=== PATIENT | female | born 1980 | race Caucasian/White ===

== ENCOUNTER 2019-05-11 00:55 | Inpatient (IN) | payer SELFPAY ==
[~2019-05-11] VITALS: Ht 175.3 cm; Wt 96.7 kg
[2019-05-11] VITALS (15 sets, daily range): BP systolic 103–123; BP diastolic 53–72
[~2019-05-11 00:55] MED LIST: RT-ALBUTEROL SULF 2.5 MG/3 ML PRE-MIX VIAL ONE; RT-IPRATROPIUM (ATROVENT) 0.5MG/2.5ML AMP IH ONE
[2019-05-11] MEDS ORDERED: methylPREDNISolone 125 MG (Solu-MEDROL) VIAL ONE (01:00)
--- OUTSIDE RECORDS SUMMARY | 2019-05-11 01:02 | XMS REPORT ---
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 Medications Not available. Problem List Not available. Vital Signs Date Time BP-Sys(mm[Hg] BP-Dominga(mm[Hg]) HR(bpm) RR(rpm) Temp WT HT HC BMI BSA BMI Percentile O2 Sat(%) 03/16/2016 11:09:00 AM 118 mmHg 75 mmHg 88 bpm 16 rpm 97.5 F 201 lbs 98 % Social History Name Description Comments Tobacco Current every day smoker Alcohol Current some day History of Procedures Date Ordered Description Order Status 03/18/2016 12:00 AM Employment Physical Reviewed Results Summary Not available. History Of Immunizations Not available. History of Past Illness Name Date of Onset Comments No significant medical history Pre-employment exam, encounter for Mar 16 2016 11:12AM Payers Insurance Name Company Name Plan Name Plan Number Policy Number Policy Group Number Start Date [facility] Med Occupational Medicine [id number] March History of Encounters Visit Date Visit Type Provider 03/16/2016 Office visit Gera Mar APRN
--- OUTSIDE RECORDS SUMMARY | 2019-05-11 01:02 | XMS REPORT ---
Author Author [facility] Medical [facility] Organization [facility] Address [address], [place] [address] Phone [phone] Summary purpose TRANSITION OF CARE AUTO GENERATION Chief Complaint and Reason for Visit No authorized Reason for Visit (Admitting Diagnosis) is available for this visit . Problem list No authorized problems tracked for continuity of care are available for this vis it. Encounters No authorized problems tracked for encounter diagnoses are available for this vi sit. Medications No medications recorded for this patient visit Allergies, adverse reactions, alerts Allergen Category Ingredient Status Reaction Severity Onset No Known Drug Allergy No known drug allergies No known drug allergies Confirmed or Verified Immunizations No immunizations recorded for this patient visit Relevant diagnostic tests and/or laboratory data No authorized results are available for this patient visit History of procedures No procedures recorded for this patient visit. Functional status No functional or cognitive status observations are available for this visit. Vital signs No authorized vital signs are available for this visit. Social history No Social History or smoking status observations were recorded for this visit. ( Unknown if ever smoked.) Treatment Plan No treatment plan text is available for this visit. Hospital discharge instructions No discharge instruction text is available for this visit.
--- OUTSIDE RECORDS SUMMARY | 2019-05-11 01:02 | XMS REPORT ---
Author Author [id number] Medical Staff Organization [facility] Address [address] [id number] Phone [phone] Summary purpose TRANSITION OF CARE AUTO GENERATION [...] for this patient visit History of procedures Procedure Code Code Type Description Date Performed Performing Physician [id number] CPT-4 EMERGENCY DEPT VISIT 03-23-2016 JULITO FRANKLIN 02630 CPT-4 EMERGENCY DEPT VISIT 03-23-2016 JULITO FRANKLIN Functional status Functional Status Finding Observation Time Abdomen Appearance round 33-31-379772:30 Abdomen rigid 79-11-497392:30 Cristobal no 50-17-701915:30 Urination normal 47-09-621069:30 Quality sym/unlabored 91-39-068809:30 Cough absent 04-41-776090:30 Secretions no 02-43-916367:30 Breath Sounds RUL clear 16-92-015999:30 Breath Sounds RML clear 96-05-055631:30 Breath Sounds RLL clear :30 Breath Sounds PAYTON clear :30 Breath Sounds LLL clear 38-85-087210:30 Airway natural 46-74-315357:30 Chest Tube no :30 Oxygen no 22-78-175763:55 Temp >100.4 no :30 Temp <96.8 no 93-57-274808:30 Chills with rigors no :30 HR > 90bpm no :30 Respirations > 20 no :30 Systolic <90 no :30 headache stiff neck no :30 Nursing Note Vs obtained. Pt stable to ambulate off [address] with x3 scripts in hand and her friend to drive pt home. :55 Vital signs Type Value Date Respiration Rate 18breaths per minute :55 Pulse 68beats per minute :55 Oxygen Saturation 96% :55 BP Systolic 125mmHg :55 BP Diastolic 56mmHg :55 Temperature 98.6F :55 Social history Type Value Smoking Status CURRENT EVERY DAY SMOKER Treatment Plan No treatment plan text is available for this visit. Hospital discharge instructions Dismissal Condition good Disposition on DC home DC Inst/Educ Give yes Med/Side Effects Rev yes PNE Vac none Flu Vac none
--- OUTSIDE RECORDS SUMMARY | 2019-05-11 01:02 | XMS REPORT | CCD ---
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 Allergies Allergy Code Allergy Type Reaction Status NO KNOWN DRUG ALLERGIES - NKDA 0 Drug allergy Active Procedures Procedure Code Procedure Type Date ^CBC W/AUTO DIFF 4612546 SNOMED CT 11/01/[address] 11/01/2015 CBC W/ AUTO DIFF (RFLX MAN DIFF IF IND) 5092272 SNOMED CT 11/01/2015 COMPREHENSIVE METABOLIC PANEL 277981522 SNOMED [address] 11/01/[address] 11/01/[address] 11/01/[address] 11/01/2015 RAPID DRUG SCREEN 801195460 SNOMED [address] 11/01/[address] 11/01/2015 History of Immunizations Unknown or Not Available. Problems Unknown or Not Available. Results COMPREHENSIVE METABOLIC PANEL - Collect Date/Time: 11/01/2015 17:20 Test Name Code Test Result Test Units Test Ref Range GLUCOSE 2345-7 84 MG/DL L=70 H=100 SODIUM 2951-2 138 MEQ/L L=135 H=148 POTASSIUM 2823-3 3.8 MEQ/L L=3.5 H=5.3 CHLORIDE 2075-0 104 MEQ/L L=96 H=110 CO2 2028-9 23 MEQ/L L=22 H=29 BUN 3094-0 8 MG/DL L=8 H=22 CREATININE 2160-0 0.8 MG/DL L=0.6 H=1.6 SGOT/AST 1920-8 35 IU/L L=10 H=40 SGPT/ALT 1742-6 38 IU/L L=8 H=54 ALK PHOS 6768-6 114 IU/L L=35 H=115 TOTAL PROTEIN 2885-2 7.9 G/DL L=5.5 H=8.5 ALBUMIN 1751-7 4.8 G/DL L=3.1 H=5.4 TOTAL BILI 1975-2 0.3 MG/DL L=0.0 H=1.5 CALCIUM 20968-5 8.9 MG/DL L=8.2 H=10.6 AGE 34 yrs GFR NonAA 83 GFR AA 101 eGFR >60 N/A eGFR AA* >60 N/A CPK - Collect Date/Time: 11/01/2015 17:20 Test Name Code Test Result Test Units Test Ref Range CPK 2157-6 200 IU/L L=0 H=235 ACETAMINOPHEN - Collect Date/Time: 11/01/2015 17:20 Test Name Code Test Result Test Units Test Ref Range ACETAMINOPHEN 3298-7 <0.60 UG/ML ALCOHOL - Collect Date/Time: 11/01/2015 17:20 Test Name Code Test Result Test Units Test Ref Range ETHANOL 5640-8 281 MG/DL RAPID DRUG SCREEN - Collect Date/Time: 11/01/2015 18:30 Test Name Code Test Result Test Units Test Ref Range Cannabinoids (THC) NEGATIVE N/A NEG: < 50 ng/ml Phencyclidine (PCP) NEGATIVE N/A NEG: < 25 ng/ml Cocaine NEGATIVE N/A NEG: < 300 ng/ml Methamphetamine NEGATIVE N/A NEG: < 1000 ng/ml Opiates NON-NEGATIVE N/A NEG: < 300 ng/ml Amphetamine NEGATIVE N/A NEG: < 1000 ng/ml Benzodiazepines NON-NEGATIVE N/A NEG: < 300 ng/ml Tricyclic Antidepres NEGATIVE N/A NEG: < 300 ng/ml Methadone NEGATIVE N/A NEG: < 300 ng/ml Barbiturates NEGATIVE N/A NEG: < 200 ng/ml Oxycodone NEGATIVE N/A NEG: < 100 ng/ml Propoxyphene (PPX) NEGATIVE N/A NEG: < 300 ng/ml SALICYLATE - Collect Date/Time: 11/01/2015 17:20 Test Name Code Test Result Test Units Test Ref Range SALICYLATE 4023-8 <5.0 MG/DL L=0.0 H=45.0 CBC W/ AUTO DIFF (RFLX MAN DIFF IF IND) - Collect Date/Time: 11/01/2015 17:20 Test Name Code Test Result Test Units Test Ref Range WBC 50592-5 9.7 TH/CMM L=4.5 H=10.8 RBC 789-8 4.89 ML/CMM L=4.20 H=5.40 HGB 718-7 16.0 G/DL L=12.0 H=16.0 HCT 4544-3 44.7 % L=37.0 H=47.0 MCV 91 FL L=81 H=99 MCH 32.7 PG L=27.0 H=33.0 MCHC 35.8 G/DL L=31.0 H=36.0 RDW SD 43 FL L=36 H=50 RDW CV 12.8 % L=0.0 H=14.8 MPV 10.3 FL L=9.3 H=12.5 PLT 777-3 269 TH/CMM L=130 H=440 NRBC# 0.00 TH/CMM L=0.00 H=0.00 NRBC% 0.0 /100WBC L=0.0 H=2.0 %NEUT 73.0 % %LYMP 21.9 % %MONO 3.2 % %EOS 1.4 % %BASO 0.5 % #NEUT 7.08 TH/CMM L=2.10 H=8.20 #LYMP 2.13 TH/CMM L=0.90 H=5.20 #MONO 0.31 TH/CMM L=0.16 H=1.00 #EOS 0.14 TH/CMM L=0.00 H=0.80 #BASO 0.05 TH/CMM L=0.00 H=0.20 MANUAL DIFF NOT IND N/A TEST - Collect Date/Time: 11/01/2015 17:20 Test Name Code Test Result Test Units Test Ref Range TEST 2118-8 NEGATIVE N/A Active Medications Unknown or Not Available. Medications Administered During Visit Unknown or Not Available. Encounters Encounter Diagnosis Diagnosis Code Start Date Intentional self poisoning 499616505 11/01/2015 Social History Smoking Status Code Start Date End Date Never smoker [id number] Patient Decision Aids Unknown or Not Available. Discharge Instructions You were admitted to [facility] on 11/01/2015 16:49 with a principal diagnosis of Toxic effect of unspecified alcohol, intentional self-harm, initial encounter You had the following tests done: ACETAMINOPHEN ALCOHOL CBC W/ AUTO DIFF (RFLX MAN DIFF IF IND) COMPREHENSIVE METABOLIC PANEL CPK TEST RAPID DRUG SCREEN SALICYLATE You were discharged from [facility] on 11/01/2015 19:00 Should you have any questions prior to discharge, please contact a member of your healthcare team. If you have left the hospital and have any questions, please contact your primary care physician. Chief Complaint and Reason For Visit Chief Complaint Date of Onset POSSIBLE OVERDOSE Function Status Unknown or Not Available. Plan of Care Unknown or Not Available. Referral/Transition of Care Unknown or Not Available.
--- OUTSIDE RECORDS SUMMARY | 2019-05-11 01:02 | XMS REPORT ---
Author [facility] Medical Staff Organization [facility] Address [address] [place], [place] [address] Phone [phone] Summary purpose TRANSITION OF CARE AUTO GENERATION [...] Code Type Description Date Performed Performing Physician A0427 CPT-4 ALS1-EMERGENCY 11-01-2015 ALAN BUNCH A0425 CPT-4 GROUND MILEAGE 11-01-2015 ALAN BUNCH Functional status No functional or cognitive status [...]
--- OUTSIDE RECORDS SUMMARY | 2019-05-11 01:02 | XMS REPORT ---
Author Author [facility] Medical Staff [facility] Address [address] [id number] Phone [phone] Summary purpose TRANSITION OF CARE AUTO GENERATION [...] recorded for this patient visit. Functional status Functional Status Finding Observation Time Abdomen Appearance round 43-32-226993:30 Abdomen rigid 81-38-160750:30 Cristobal no 94-75-686938:30 Urination normal 63-63-422796:30 Quality sym/unlabored :30 Cough absent 13-36-913621:30 Secretions no :30 Breath Sounds RUL clear 32-36-521069:30 Breath Sounds RML clear 86-92-936052:30 Breath Sounds RLL clear 95-68-482027:30 Breath Sounds PAYTON clear 95-60-094915:30 Breath Sounds LLL clear 15-21-757881:30 Airway natural 55-11-624436:30 Chest Tube no :30 Oxygen no 17-00-998733:55 Temp >100.4 no :30 Temp <96.8 no :30 Chills with rigors no 87-98-997704:30 HR > 90bpm no 14-51-574137:30 Respirations > 20 no :30 Systolic <90 no 75-63-790637:30 headache stiff neck no 37-89-086631:30 Nursing Note Vs obtained. Pt stable to [...]
--- OUTSIDE RECORDS SUMMARY | 2019-05-11 01:02 | XMS REPORT | Referral Summary ---
Author Author [facility] Organization [facility] Address Unknown Phone Unavailable Care Team Providers Care Child Care Director Name Role Phone Casimiro Feliciano PCP Encounter Date(s): 05/09/16 - 05/09/16 [facility] [address] [place], [place] [address] [phone] Discharge Diagnosis: Strain of back Discharge Diagnosis: Chronic back pain Discharge Disposition: 01-Home or Self Care Attending Physician: Evaristo Howard MD Admitting Physician: Evaristo Howard MD Vital Signs Most recent to 1 oldest [Reference Range]: Temperature Oral 36.6 degC [35.8-37.3 degC] (05/09/16 2:13 PM) Peripheral Pulse 76 bpm Rate [60-100 bpm] (05/09/16 3:18 PM) Respiratory Rate 16 br/min [14-20 br/min] (05/09/16 3:18 PM) Blood Pressure 103/68 mmHg [90-140/60-90 mmHg] (05/09/16 3:18 PM) SpO2 96 % (05/09/16 3:18 PM) Problem List No data available for this section Allergies, Adverse Reactions, Alerts No Known Medication Allergies Medications albuterol 0 Refill(s) Start Date: 05/09/16 Status: Ordered cyclobenzaprine 10 mg oral tablet 10 mg 1 tabs, Oral, TID, as needed for spasm, X 5 days, # 15 tabs, 0 Refill(s) Start Date: 05/09/16 Stop Date: 05/14/16 Status: Ordered Ultram 50 mg oral tablet 50 mg 1 tabs, Oral, q6hr, as needed for pain, X 3 days, # 12 tabs, 0 Refill(s) Start Date: 05/09/16 Stop Date: 05/12/16 Status: Ordered Results No data available for this section Immunizations No data available for this section Procedures No data available for this section Social History Social History Type Response Smoking Status Current every day smoker; Tobacco use per day: Pack Assessment and Plan No data available for this section
--- OUTSIDE RECORDS SUMMARY | 2019-05-11 01:03 | XMS REPORT | Continuity of Care Document ---
Author Author [facility] Address [address] [place] [address] Care Team Providers Care Child Care Provider Name Role Phone Piter Haney MD Unavailable Insurance Providers Payer Name Policy Number Subscriber Name Relationship Self-Pay Self-Pay KATRINA CORREIA Self Advance Directives Directive Response Recorded Date/Time Advance Directive Information: AD BROCHURE GIVEN TO PT 05/26/17 2:23am Chief Complaint and Reason for Visit Reason for Visit INTOXICATED Problems Active Medical Problems Problem Onset Date Recorded Date Status Alcohol abuse Unknown 08/06/14 Active Asthma attack Unknown 08/06/14 Active Intoxication Unknown 09/21/14 Active Suicide gesture Unknown 09/21/14 Active Drug overdose 09/24/14 09/24/14 Active Bed bug bite Unknown 07/15/15 Active Strain of muscle, fascia and tendon of lower back, initial encounter Unknown 07/22/16 Active Seizure disorder Unknown 03/02/17 Active Alcohol intoxication delirium Unknown 03/02/17 Active Acute alcohol intoxication Unknown 05/26/17 Active Medications Current Home Medications Medication Dose Units Route Directions Days/Qty Instructions Start Date Albuterol Sulf 0.083% (Albuterol 2.5 MG/3ML Neb Soln) 2.5 MG/3 ML NEB.SOLN 1 VIAL IH as needed PRN WHEEZING Albuterol Sulfate HFA (Ventolin HFA) 10 PUFF/GM INH 2 PUFF INHALATION FOUR TIMES DAILY 1 GIVE BRAND PAID FOR BY INSURANCE Prednisone 20 MG TABLET 1 TAB BY MOUTH THREE TIMES DAILY 15 07/15/15 Social History Problem Response Recorded Date Drug Use none 08/05/14 Alcohol Use occasionally 07/15/15 Hospital Discharge Instructions No hospital discharge instructions. Plan of Care Discharge Date 05/26/17 Disposition HOME/SELF CARE Condition at Discharge Satisfactory Instructions/Education Provided Alcohol Intoxication (ED) Prescriptions See Medications Section Referrals Piter Haney MD - Additional Instructions/Education FOLLOWUP WITH PRIMARY CARE Care Plan and Goals Problem: Requests detoxification. Goal: Refrain from excessive alcohol consumption. Plan: Refer to patient instructions provided. Functional Status No functional status results. Allergies, Adverse Reactions, Alerts No known allergies. Immunizations Name Date Given Type *Flu Shot: Unknown Historical *Tetanus Shot: Unknown Historical *MMR: Unknown Historical *T Dap: Unknown Historical *Hepatitis B: Unknown Historical Vital Signs Vital Reading Collection Date/Time Result Blood Pressure 05/26/17 4:20am 92/54 Patient Temperature 05/26/17 4:20am 97.4 Temperature Source 05/26/17 2:34am Temporal Respiratory Rate 05/26/17 4:20am 18 Pulse Rate 05/26/17 4:20am 94 Bedside Pulse Oximetry 05/26/17 4:20am 95 Height 05/26/17 2:34am 5 ft 6 in Weight 05/26/17 2:34am 220 lb 0 oz Body Mass Index 05/26/17 2:34am 35.5 Results [place] [address] ED PHYSICIAN DOCUMENTATION Patient Name: KATRINA CORREIA : 82 Unit #: [id number] Patient's Service Date: 05/26/17 ED Physician: Gaye Sam MD Primary Physician: Piter Haney MD History of Present Illness General Chief Complaint Overdose Stated Complaint INTOXICATED Time Seen by Provider 0244 Source patient Exam Limitations no limitations History of Present Illness Initial Comments PT HAS BEEN DRINKING SINCE 4 PM YESTERDAY UNTIL 0200 LOSING BLADDER CONTROL AN D DELERIOUS BUT AMBULATORY. SHE DOES NOT WANT TO BE SEEN. HER PARTNER INSISTS THAT SHE BE CHECKED. Context after alcohol use Quality denies pain Severity severe Duration hours Timing continuous Modifying Factors nothing improves, nothing worsens Allergies Coded Allergies: NO KNOWN ALLERGIES (07/22/16) Home Medications Active Scripts Prednisone 1 TAB BY MOUTH TID #15 UD.TAB Prov: 07/15/15 Reported Medications Albuterol Sulfate HFA (Ventolin HFA) 2 PUFF INHALATION QID #1 INHALER Albuterol Sulf 0.083% (Albuterol 2.5 MG/3ML Neb Soln) 1 VIAL IH PRN PRN WHEEZING Review of Systems Review of Systems Was ROS Completed? No Unable to Obtain intoxication Past Medical History Past Medical History Medical History asthma, COPD, seizure Surgical History denies surgeries Social History Smoker Current every day smoker Alcohol (Age 13 & Up) heavy, recently Physical Exam Physical Exam Exam Limitations intoxication Nursing Assessment Reviewed Yes Initial Vital Signs Vital Signs Result Date Time Pulse Ox 96 05/26 0234 B/P 106/33 05/26 0234 Temp 97.4 05/26 234 Pulse 90 05/26 0234 Resp 20 05/26 0234 Constitutional well developed, well nourished, poor hygiene Eyes bilateral eyes conjunctivae erythema Ear, Nose, Throat hearing grossly normal Respiratory no respiratory distress, normal breath sounds Gastrointestinal soft Musculoskeletal normal strength, extremities WNL Skin normal color, warm/dry Results Results Labs Laboratory Tests 05/26 0305 Chemistry Sodium (135 - 150 mmol/L) 140 Potassium (3.4 - 5.2 mmol/L) 3.4 Chloride (100 - 112 mmol/L) 105 Carbon Dioxide (18 - 30 mEq/L) 21 Anion Gap (8 - 16 mmol/L) 14 BUN (5 - 21 mg/dL) 7 Creatinine (0.60 - 1.30 mg/dL) 0.74 GFR Calculation (> 60 mL/Min) > 60 Glucose (70 - 99 mg/dL) 105 H Calcium (8.6 - 10.5 mg/dL) 8.7 Total Bilirubin (0.0 - 1.2 mg/dL) 0.5 AST (6 - 37 U/L) 53.0 H ALT (12 - 78 U/L) 98.0 H Alkaline Phosphatase (50 - 136 U/L) 93.0 Total Protein (6.4 - 8.2 g/dL) 7.2 Albumin (3.3 - 4.5 g/dL) 3.7 Albumin/Globulin Ratio (0.7 - 2.0) 1.1 Hematology WBC (4.5 - 11.0 10^3/uL) 8.1 RBC (3.50 - 5.40 10^6/uL) 4.18 Hgb (12.0 - 16.0 g/dl) 13.3 Hct (36 - 48 %) 38.2 MCV (79 - 99 fL) 91.5 MCH (25.0 - 34.0 pg) 31.9 MCHC (31.0 - 36.0 g/dL) 34.9 RDW (11.0 - 15.0 %) 12.8 Plt Count (130 - 400 10^3/uL) 242 MPV (7.0 - 11.0 fL) 8.7 Neutrophils % (43.0 - 72.0 %) 69.8 Lymphocytes % (15.0 - 45.0 %) 21.6 Monocytes % (1.0 - 12.0 %) 5.8 Eosinophils % (0.0 - 6.0 %) 1.2 Basophils % (0.0 - 2.0 %) 1.6 Neutrophils # (1.0 - 8.0 10^3/uL) 5.7 Lymphocytes # (1.0 - 3.0 10^3/uL) 1.8 Monocytes # (0.0 - 1.0 10^3/uL) 0.5 Eosinophils # (0.0 - 0.4 10^3/uL) 0.1 Basophils # (0.0 - 0.2 10^3/uL) 0.1 Toxicology Serum Alcohol (0 mg/dL) 245 Progress Note Medications Medications Medications Given in the ED Sig/Kathia Start time Last Medication Dose Route Stop Time Status Admin Ondansetron HCl 4 MG ONE ONE 05/26 248 DC 05/26 (ZOFRAN) IV 05/26 0249 0306 Sodium Chloride 1,000 ML .Q1H 05/26 0248 DC 05/26 (0.9% Sodium IV 05/26 0347 0306 Chloride) Departure Departure Clinical Impression Primary Impression: Acute alcohol intoxication Qualifiers: Complication of substance-induced condition: uncomplicated Qualifie d Code: F10.929 - lcohol use, unspecified with intoxication, unspecified Time of Disposition 0403 Disposition HOME/SELF CARE Condition Satisfactory Tobacco Education Edu Omitted Other Reason Patient Instructions Alcohol Intoxication (ED) Referrals Piter Haney MD (PCP) Additional Instructions FOLLOWUP WITH PRIMARY CARE Gaye Sam MD Electronically Signed 05/26/17 0404 Procedures No Known History of Procedures. Encounters Encounter Location Arrival/Admit Date Discharge/Depart Date Attending Provider Departed Emergency [facility] 05/26/17 2:23am 05/26/17 4:20am Gaye Sam MD Departed Emergency [facility] 03/02/17 10:13pm 03/02/17 11:30pm Gaye Sam MD Encounter Diagnosis Acute alcoholic intoxication
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
--- OUTSIDE RECORDS SUMMARY | 2019-05-11 01:03 | XMS REPORT | Continuity of Care Document ---
Author Author [facility] Address [address] [place] [address] Care Team Providers Care Hull Builder Name Role Phone Piter Haney MD Unavailable Insurance Providers Payer Name Policy Number Subscriber Name Relationship Self-Pay Self-Pay KATRINA CORREIA Self Advance Directives Directive Response Recorded Date/Time Advance Directive Information: AD BROCHURE GIVEN TO PT 03/02/17 10:13pm Chief Complaint and Reason for Visit Reason for Visit SEIZURE Problems Active Medical Problems Problem Onset Date [...] Active Alcohol intoxication delirium Unknown 03/02/17 Active Medications Current Home Medications Medication Dose [...] discharge instructions. Plan of Care Discharge Date 03/02/17 Disposition AGAINST MEDICAL ADVICE Prescriptions See Medications Section Referrals Piter Haney MD - Functional Status No functional status results. Allergies, Adverse Reactions, Alerts No known allergies. Immunizations Name Date Given Type *Flu Shot: Unknown Historical *Tetanus Shot: Less than 5 Years Historical *MMR: Unknown Historical *T Dap: Unknown Historical *Hepatitis B: Unknown Historical Vital Signs Vital Reading Collection Date/Time Result Blood Pressure 03/02/17 10:38pm 118/63 Patient Temperature 03/02/17 11:59pm 98.0 Temperature Source 03/02/17 10:38pm Temporal Respiratory Rate 03/02/17 10:38pm 18 Pulse Rate 03/02/17 10:38pm 120 Bedside Pulse Oximetry 03/02/17 10:38pm 99 Height 03/02/17 10:38pm 5 ft 6 in Weight 03/02/17 10:38pm 215 lb Body Mass Index 03/02/17 10:38pm 34.7 Results No known relevant diagnostic tests, laboratory data and/or discharge summary. Procedures No Known History of Procedures. Encounters Encounter Location Arrival/Admit Date Discharge/Depart Date Attending Provider Departed Emergency [facility] 03/02/17 10:13pm 03/02/17 11:30pm Gaye Sam MD Discharged Rec[facility]ring [facility] 12/14/16 3:34pm 01/05/17 10:29am Piter Haney MD Discharged [facility] 11/20/16 1:41pm 12/12/16 Piter Haney MD Encounter Diagnosis Seizure disorder Alcohol intoxication delirium
--- OUTSIDE RECORDS SUMMARY | 2019-05-11 01:03 | XMS REPORT | Continuity of Care Document ---
Author Author [facility] Address Unknown Phone Unavailable Care Team Providers Care Travel Agency Manager Name Role Phone DOCTOR, OUT OF TOWN Unavailable Unavailable Insurance Providers Payer Name Policy Number Subscriber Name Relationship Self-Pay Self-Pay KATRINA BREN Self Advance Directives Directive Response Recorded Date/Time Advance Directive Information: AD BROCHURE GIVEN TO PT 06/28/15 2:53am Chief Complaint and Reason for Visit Reason for Visit Intoxication Problems Medical Problems Problem Onset Date Status Alcohol abuse Unknown Active Asthma attack Unknown Active Intoxication Unknown Active Suicide gesture Unknown Active Drug overdose 09/24/14 Active Medications Medication Dose Route Sig Days/Qty Instructions Order Date Discontinued Date Status Albuterol Sulfate HFA* (Ventolin HFA*) 10 PUFF/GM INH 2 PUFF RESPIRATORY (INHALATION) FOUR TIMES DAILY 1 Qty GIVE BRAND PAID FOR BY INSURANCE Active Albuterol Sulf 0.083% (Albuterol 2.5 MG/3ML Neb Soln) 2.5 MG/3 ML NEB.SOLN 1 VIAL RESPIRATORY (INHALATION) as needed PRN WHEEZING Active Social History Social History Problem Response Recorded Date/Time Alcohol Use heavy 08/05/14 0:04am Drug Use none 08/05/14 0:04am Hospital Discharge Instructions No hospital discharge instructions. Plan of Care Discharge Date 06/28/15 3:45am Disposition AGAINST MEDICAL ADVICE Prescriptions See Medications Section Referrals OUT OF TOWN DOCTOR Functional Status No functional status results. Allergies, Adverse Reactions, Alerts Allergen Type Severity Reaction Status Last Updated NO KNOWN ALLERGIES Allergy Unknown Active 06/28/15 Immunizations Name Date Given Type *Flu Shot: None Historical *Tetanus Shot: Unknown Historical *MMR: Unknown Historical *T Dap: Unknown Historical *Hepatitis B: Unknown Historical Vital Signs Vital Reading Collection Date/Time Result Blood Pressure 06/28/15 3:03am 117/71 Patient Temperature 06/28/15 3:03am 97.2 Temperature Source 06/28/15 3:03am TEMP Respiratory Rate 06/28/15 3:03am 12 Pulse Rate 06/28/15 3:03am 109 Bedside Pulse Oximetry 06/28/15 3:03am 97 Procedures No Known History of Procedures. Results Test Source Date Result Interp. Ref. Range Comments Alanine Aminotransferase (ALT/SGPT) 06/28/15 43 U/L 12 - 78 Albumin 06/28/15 4.1 g/dl 3.3 - 4.5 Albumin/Globulin Ratio 06/28/15 1.1 0.7 - 2.0 Alkaline Phosphatase 06/28/15 128 U/L H 46 - 116 Anion Gap 06/28/15 14 mmol/L 8 - 16 Aspartate Amino Transf (AST/SGOT) 06/28/15 28 U/L 6 - 37 Blood Urea Nitrogen 06/28/15 8 mg/dl 5 - 21 Calcium Level 06/28/15 8.3 mg/dl L 8.6 - 10.5 Carbon Dioxide Level 06/28/15 25 meq/L 21 - 33 Chloride Level 06/28/15 102 mmol/L 100 - 112 Creatinine 06/28/15 0.92 mg/dl 0.60 - 1.30 Glomerular Filtration Rate Calc 06/28/15 > 60 mL/Min > 60 - Glucose Level 06/28/15 88 mg/dl 70 - 99 Potassium Level 06/28/15 3.6 mmol/L 3.4 - 5.2 Sodium Level 06/28/15 141 mmol/L 135 - 150 Total Bilirubin 06/28/15 0.4 mg/dl 0.0 - 1.2 Total Protein 06/28/15 7.7 g/dl 6.4 - 8.2 Hematocrit 06/28/15 45.4 % 36 - 48 Hemoglobin 06/28/15 15.3 g/dl 12.0 - 16.0 Mean Corpuscular Hemoglobin 06/28/15 31.6 pg 25.0 - 34.0 Mean Corpuscular Hemoglobin Concent 06/28/15 33.8 g/dL 31.0 - 36.0 Mean Corpuscular Volume 06/28/15 93.5 fL 79 - 99 Mean Platelet Volume 06/28/15 8.0 fL 7.0 - 11.0 Platelet Count 06/28/15 284 10^3/uL 130 - 400 Red Blood Count 06/28/15 4.85 10^6/uL 3.50 - 5.40 Red Cell Distribution Width 06/28/15 12.6 % 11.0 - 15.0 White Blood Count 06/28/15 10.5 10^3/uL 4.5 - 11.0 Encounters Encounter Location Date/Time Departed Emergency [facility] 06/28/15 3:45am Recent Diagnosis Intoxication
--- OUTSIDE RECORDS SUMMARY | 2019-05-11 01:03 | XMS REPORT | Continuity of Care Document ---
Author Author [facility] Address [address] [place] [address] Care Team Providers Care Labview Programmer Name Role Phone Piter Haney MD Unavailable Insurance Providers Payer Name Policy Number Subscriber Name Relationship * CLAIM #[id number] KATRINA CORREIA PATIENT/SELF Medicaid [id number] KATRINA CORREIA PATIENT/SELF Advance Directives Directive Response Recorded Date/Time Advance Directive Information: AD BROCHURE GIVEN TO PT 12/18/16 1:44pm Problems Active Medical Problems Problem Onset Date [...] No hospital discharge instructions. Plan of Care No plan of care. Functional Status No functional status results. Allergies, Adverse Reactions, Alerts No known allergies. Immunizations Name Date Given Type *Flu Shot: Unknown Historical *Tetanus Shot: Less than 5 Years Historical *MMR: Unknown Historical *T Dap: Unknown Historical *Hepatitis B: Unknown Historical Vital Signs No Known Vital Signs Results. Results No known relevant diagnostic tests, laboratory data and/or discharge summary. Procedures No Known History of Procedures. Encounters Encounter Location Arrival/Admit Date Discharge/Depart Date Attending Provider Discharged Rec[facility]ring [facility] 12/14/16 3:34pm 01/05/17 10:29am Piter Haney MD Discharged Rec[facility] 11/20/16 1:41pm 12/12/16 Piter Haney MD Encounter Diagnosis Onset Date Alcohol abuse Asthma attack Intoxication Suicide gesture Drug overdose 09/24/14 Bed bug bite Strain of muscle, fascia and tendon of lower back, initial encounter
--- OUTSIDE RECORDS SUMMARY | 2019-05-11 01:03 | XMS REPORT | Continuity of Care Document ---
Author Author [facility] Address [address] [place] [address] Care Team Providers Care Framing Inspector Name Role Phone Piter Haney MD Unavailable Insurance Providers Payer Name Policy Number Subscriber Name Relationship * CLAIM #[id number] KATRINA MCKEETON PATIENT/SELF Medicaid [id number] KATRINA CORREIA PATIENT/SELF Advance Directives Directive Response Recorded Date/Time Advance Directive Information: AD BROCHURE GIVEN TO PT 12/13/16 0:15am Problems Active Medical Problems Problem Onset Date [...] Date Discharge/Depart Date Attending Provider Discharged Recurring [facility] 11/20/16 1:41pm 12/12/16 Piter Haney MD Registered Clinical [facility] 10/02/16 3:34pm Piter Haney MD Encounter Diagnosis Onset Date Alcohol abuse Asthma attack Intoxication Suicide gesture Drug overdose 09/24/14 Bed bug bite Strain of muscle, fascia and tendon of lower back, initial encounter
--- OUTSIDE RECORDS SUMMARY | 2019-05-11 01:03 | XMS REPORT | Clinical Summary ---
Author Author Admin, ALEXANDRE Saul [facility] Address Unknown Phone Unavailable Allergies, Adverse Reactions, Alerts Allergy Name Reaction Description Start Date Severity Status Provider Allergies Unknown Conditions or Problems Problem Name Problem Code Onset Date Status Entry Date Provider Comment Standard Description Annotate Asthma 493.90 Active Jillina Frazell PROFILE TRIMMER Asthma, unspecified (History of) Biliary dyskinesia 575.8 Active Jillina Frazell PROFILE TRIMMER Other specified disorders of gallbladder Medication List Medication Instructions Start Date Stop Date Generic Name NDC Status Provider Patient Instruction ALBUTEROL SULFATE NEBU 1 puff as needed ALBUTEROL SULFATE NEBU 05181807698 Active Jillina Frazell PROFILE TRIMMER Active SEROQUEL 200 MG TABS take at bedtime QUETIAPINE FUMARATE 58699256107 Active Jillina Frazell PROFILE TRIMMER Active ZOFRAN 4 MG TABS 1 po q6hr PRN Nausea ONDANSETRON HCL 41989937723 Active Jillina Frazell PROFILE TRIMMER Active PERCOCET 5-325 MG TAB Take one by mouth every 4-6 hours as needed OXYCODONE-ACETAMINOPHEN 83246737776 Active Jillina Frazell PROFILE TRIMMER Active Advance Directives Directive Description Start Date PERMISSION TO SHARE Vital Signs Date Name Value Unit Range Description blood pressure, diastolic - 8462-4 72 mm[Hg] BP lemus blood pressure, systolic - 8480-6 105 mm[Hg] BP sys height E&M - 8302-2 65.5 [in_us] Bdy height pulse rate E&M - 8867-4 85 /min Heart rate temperature E&M 97.7 [degF] Body temperature weight E&M - 3141-9 189 [lb_av] Weight Measured Diagnostic Results Date Name Value Unit Range Description Chart Maintenance: labs added to flowsheet - Chemistry sodium, serum 141 mmol/L potassium, serum 4.1 mmol/L chloride, serum 105 mmol/L carbon dioxide, venous blood 28.1 mmol/L urea nitrogen, blood 9 mg/dL blood glucose 99 mg/dL creatinine, serum 0.92 mg/dL aspartate aminotransferase (SGOT), serum 35 U/L alanine aminotransferase (SGPT), serum 56 U/L bilirubin, serum, total 0.8 mg/dL calcium, serum 9.3 mg/dL Chart Maintenance: labs added to flowsheet - Hematology leukocyte count, blood 7.2 10*3/mm3 monocytes as percent of blood leukocytes 7.1 % lymphocytes as percent of blood leukocytes 23.6 % eosinophils as percent of blood leukocytes 3.9 % basophils as percent of blood leukocytes 1.0 % erythrocyte (RBC) count 4.7 10*6/mm3 hemoglobin, blood 14.9 g/dL hematocrit, blood 42.7 % mean corpuscular volume, RBC 91.2 fL mean corpuscular hemoglobin, RBC 31.8 pg mean corpuscular hemoglobin concentration, RBC 34.9 % red blood cell distribution width 13.0 % platelet count 247 10*3/mm3 Procedures Code Procedure Name Date Entry Date Standard Description CPT-OV Office Visit 14:02:08 CDT
--- OUTSIDE RECORDS SUMMARY | 2019-05-11 01:03 | XMS REPORT | Clinical Summary ---
Author Author Admin, ALEXANDRE Saul [facility] Address Unknown Phone Unavailable Allergies, Adverse Reactions, Alerts Allergy Name Reaction Description Start Date Severity Status Provider Allergies Unknown Conditions or Problems Problem Name Problem Code Onset Date Status Entry Date Provider Comment Standard Description Annotate Asthma 493.90 Active Jillina Frazell CORSET FITTER Asthma, unspecified (History of) Biliary dyskinesia 575.8 Active Jillina Frazell CORSET FITTER Other specified disorders of gallbladder Medication List Medication Instructions Start Date Stop Date Generic Name NDC Status Provider Patient Instruction ALBUTEROL SULFATE NEBU 1 puff as needed ALBUTEROL SULFATE NEBU 90844861896 Active Jillina Frazell CORSET FITTER Active SEROQUEL 200 MG TABS take at bedtime QUETIAPINE FUMARATE 19843497626 Active Jillina Frazell CORSET FITTER Active ZOFRAN 4 MG TABS 1 po q6hr PRN Nausea ONDANSETRON HCL 51777970739 Active Jillina Frazell CORSET FITTER Active PERCOCET 5-325 MG TAB Take one by mouth every 4-6 hours as needed OXYCODONE-ACETAMINOPHEN 81843549644 Active Jillina Frazell CORSET FITTER Active Advance Directives Directive Description Start Date [...] E&M - 3141-9 189 [lb_av] Weight Measured Procedures Code Procedure Name Date Entry Date Standard Description CPT-OV Office Visit 14:02:08 CDT
--- OUTSIDE RECORDS SUMMARY | 2019-05-11 01:03 | XMS REPORT | Clinical Summary ---
Author Author Admin, ALEXANDRE Saul [facility] Address Unknown Phone Unavailable Allergies, Adverse Reactions, Alerts Allergy Name Reaction Description Start Date Severity Status Provider Allergies Unknown Conditions or Problems Problem Name Problem Code Onset Date Status Entry Date Provider Comment Standard Description Annotate Asthma 493.90 Active Jillina Frazell PROOF PLATE MAKER Asthma, unspecified (History of) Biliary dyskinesia 575.8 Active Jillina Frazell PROOF PLATE MAKER Other specified disorders of gallbladder Medication List Medication Instructions Start Date Stop Date Generic Name NDC Status Provider Patient Instruction ALBUTEROL SULFATE NEBU 1 puff as needed ALBUTEROL SULFATE NEBU 35895990378 Active Jillina Frazell PROOF PLATE MAKER Active SEROQUEL 200 MG TABS take at bedtime QUETIAPINE FUMARATE 91413891781 Active Jillina Frazell PROOF PLATE MAKER Active ZOFRAN 4 MG TABS 1 po q6hr PRN Nausea ONDANSETRON HCL 79327704432 Active Jillina Frazell PROOF PLATE MAKER Active PERCOCET 5-325 MG TAB Take one by mouth every 4-6 hours as needed OXYCODONE-ACETAMINOPHEN 12428776919 Active Jillina Frazell PROOF PLATE MAKER Active Advance Directives Directive Description Start Date [...]
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
--- NOTE | 2019-05-11 01:08 | ED Dyspnea ---
General Stated Complaint: SOB Source of Information: Patient, EMS, Other History of Present Illness Date Seen by Provider: May 11, 2019 Time Seen by Provider: 01:07 Initial Comments seen on arrival prior to being checked in. She is brought directly from car, carried in, in extreme respiratory distress, very tight, moving little air. She can use BiPaP but having difficulty with machine, so we are starting 10 mg albuterol/2.t atrovent, solumedrol 125 IV, all verbal orders until patient can be checked into the computer. Timing/Duration: 1/2 Hour Severity: Severe Activities at Onset: Emotional Stress Prior Episodes/Possible Cause: Occasional Episodes Modifying Factors: Improves With Other Allergies and Home Medications Allergies Coded Allergies: No Known Drug Allergies (Unverified , 05/11/19) Patient Home Medication List Home Medication List Reviewed: Yes Review of Systems Review of Systems Constitutional: no symptoms reported, diaphoresis, weakness, other EENTM: no symptoms reported Respiratory: no symptoms reported, short of breath Cardiovascular: no symptoms reported Gastrointestinal: no symptoms reported Genitourinary: no symptoms reported Musculoskeletal: no symptoms reported Skin: see HPI Psychiatric/Neurological: Anxiety Endocrine: No Symptoms Reported Physical Exam Vital Signs Vital Signs - First Documented 05/11/19 01:16 Temp 97.9 Pulse 90 B/P (MAP) 137/71 (93) Pulse Ox 93 O2 Delivery Room Air Capillary Refill : Height, Weight, BMI Height: '" Weight: lbs. oz. kg; BMI Method: General Appearance: Anxious, Severe Distress HEENT: PERRL/EOMI, Normal ENT Inspection Neck: Full Range of Motion, Supple Respiratory: No Accessory Muscle Use, Decreased Breath Sounds, Respiratory Distress, Wheezing Cardiovascular: Tachycardia Gastrointestinal: Non Tender Extremity: Normal Capillary Refill, Normal Inspection, Normal Range of Motion Neurologic/Psychiatric: Depressed Affect, Disoriented Skin: Diaphoresis Lymphatic: No Adenopathy Progress/Results/Core Measures Results/Orders Lab Results Laboratory Tests Test 05/11/19 01:05 Range/Units White Blood Count 11.1 H 4.3-11.0 10^3/uL Red Blood Count 4.71 4.35-5.85 10^6/uL Hemoglobin 14.8 11.5-16.0 G/DL Hematocrit 43 35-52 % Mean Corpuscular Volume 90 80-99 FL Mean Corpuscular Hemoglobin 31 25-34 PG Mean Corpuscular Hemoglobin Concent 35 32-36 G/DL Red Cell Distribution Width 12.2 10.0-14.5 % Platelet Count 312 130-400 10^3/uL Mean Platelet Volume 10.3 7.4-10.4 FL Neutrophils (%) (Auto) 42-75 % Lymphocytes (%) (Auto) 12-44 % Monocytes (%) (Auto) 0-12 % Eosinophils (%) (Auto) 0-10 % Basophils (%) (Auto) 0-10 % Neutrophils # (Auto) 1.8-7.8 X 10^3 Lymphocytes # (Auto) 1.0-4.0 X 10^3 Monocytes # (Auto) 0.0-1.0 X 10^3 Eosinophils # (Auto) 0.0-0.3 10^3/uL Basophils # (Auto) 0.0-0.1 10^3/uL Neutrophils % (Manual) 46 % Lymphocytes % (Manual) 41 % Monocytes % (Manual) 9 % Eosinophils % (Manual) 4 % Basophils % (Manual) 0 % Blood Morphology Comment NORMAL Sodium Level 143 135-145 MMOL/L Potassium Level 3.5 L 3.6-5.0 MMOL/L Chloride Level 104 98-107 MMOL/L Carbon Dioxide Level 25 21-32 MMOL/L Anion Gap 14 5-14 MMOL/L Blood Urea Nitrogen 11 7-18 MG/DL Creatinine 0.82 0.60-1.30 MG/DL Estimat Glomerular Filtration Rate > 60 BUN/Creatinine Ratio 13 Glucose Level 113 H 70-105 MG/DL Calcium Level 9.0 8.5-10.1 MG/DL Corrected Calcium 8.5-10.1 MG/DL Total Bilirubin 0.3 0.1-1.0 MG/DL Aspartate Amino Transf (AST/SGOT) 33 5-34 U/L Alanine Aminotransferase (ALT/SGPT) 35 0-55 U/L Alkaline Phosphatase 103 40-136 U/L Total Protein 7.6 6.4-8.2 GM/DL Albumin 4.6 H 3.2-4.5 GM/DL Serum Alcohol 221 H <10 MG/DL My Orders Orders - MIKAYLA-BERENICE LEAL MD Albuterol Pre-Mix Nebs (Rt) (Proventil (05/11/19 00:55) Ipratropium 0.02% Neb Solution (Atrovent (05/11/19 00:55) Chest 1 View Ap/Pa Only (05/11/19 01:05) Cbc And Manual Diff (05/11/19 01:05) Alcohol (05/11/19 01:05) Comprehensive Metabolic Panel (05/11/19 01:05) Methylprednisolone Sod Succ (Solu-Medrol (05/11/19 01:00) Methylprednisolone Sod Succ (Solu-Medrol (05/11/19 01:30) Ipratropium 0.02% Neb Solution (Atrovent (05/11/19 01:30) Svn Small Volume Nebulizer (05/11/19 01:23) Albuterol Pre-Mix Nebs (Rt) (Proventil (05/11/19 01:30) Albuterol Pre-Mix Nebs (Rt) (Proventil (05/11/19 01:45) Albuterol Pre-Mix Nebs (Rt) (Proventil (05/11/19 01:45) Albuterol Pre-Mix Nebs (Rt) (Proventil (05/11/19 01:45) Ed Iv/Invasive Line Start (05/11/19 01:42) Lorazepam Injection (Ativan Injection) (05/11/19 02:00) Albuterol Pre-Mix Nebs (Rt) (Proventil (05/11/19 02:30) Albuterol Pre-Mix Nebs (Rt) (Proventil (05/11/19 02:30) Albuterol Pre-Mix Nebs (Rt) (Proventil (05/11/19 02:30) Albuterol Pre-Mix Nebs (Rt) (Proventil (05/11/19 02:30) Ipratropium 0.02% Neb Solution (Atrovent (05/11/19 02:30) Svn Small Volume Nebulizer (05/11/19 02:27) Lorazepam Injection (Ativan Injection) (05/11/19 03:00) Medications Given in ED Current Medications Medications Dose Ordered Sig/Kathia Route Start Time Stop Time Status Last Admin Dose Admin Albuterol Sulfate 2.5 mg ONCE ONCE INH 05/11/19 01:30 05/11/19 01:34 DC 05/11/19 01:38 2.5 MG Albuterol Sulfate 2.5 mg ONCE ONCE INH 05/11/19 01:45 05/11/19 01:46 IN 05/11/19 01:38 2.5 MG Albuterol Sulfate 2.5 mg ONCE ONCE INH 05/11/19 01:45 05/11/19 01:46 IN 05/11/19 01:38 2.5 MG Albuterol Sulfate 2.5 mg ONCE ONCE INH 05/11/19 01:45 05/11/19 01:46 IN 05/11/19 01:38 2.5 MG Albuterol Sulfate 2.5 mg ONCE ONCE INH 05/11/19 02:30 05/11/19 02:31 IN 05/11/19 02:34 2.5 MG Albuterol Sulfate 2.5 mg ONCE ONCE INH 05/11/19 02:30 05/11/19 02:31 IN 05/11/19 02:34 2.5 MG Albuterol Sulfate 2.5 mg ONCE ONCE INH 05/11/19 02:30 05/11/19 02:31 IN 05/11/19 02:34 2.5 MG Albuterol Sulfate 2.5 mg ONCE ONCE INH 05/11/19 02:30 05/11/19 02:31 IN 05/11/19 02:34 2.5 MG Ipratropium [place] 0.5 mg ONCE ONCE 05/11/19 01:30 05/11/19 01:34 IN 05/11/19 01:37 0.5 MG Ipratropium [place] 0.5 mg ONCE ONCE 05/11/19 02:30 05/11/19 02:31 IN 05/11/19 02:32 0.5 MG Lorazepam 0.5 mg ONCE ONCE IVP 05/11/19 02:00 05/11/19 02:14 IN 05/11/19 02:26 0.5 MG Lorazepam 0.5 mg ONCE ONCE IVP 05/11/19 03:00 05/11/19 03:01 IN 05/11/19 02:59 0.5 MG Methylprednisolone Sodium Succinate 125 mg ONCE ONCE IVP 05/11/19 01:30 05/11/19 01:34 DC 05/11/19 01:36 125 MG Vital Signs/I&O 05/11/19 01:16 Temp 97.9 Pulse 90 B/P (MAP) 137/71 (93) Pulse Ox 93 O2 Delivery Room Air Progress Progress Note : Time: 02:09 Progress Note She is substantially improved from arrival, but still requires admission for status asthmaticus. Several years since prior admission. Uses albuterol rescue inhaler only. Tonight drinking and smoking at club with sudden onset severe tight asthma attack. No prodrome. Currently on BiPaP. CBC normal. Chem K=3.5. EtOH 221. CXR portable negative. Meds: solumedrol 125 IVP. 10 albuterol/0.5 atrovent twice. On BiPap at 80% FIO2. Will transport on CPAP. 0.5 Ativan IVP single dose. ICU bed available at [facility]. Patient unassigned. Dr. Mai business controller. ICU is available. Departure Impression Primary Impression: Status asthmaticus, intrinsic Disposition: ADMITTED INPATIENT Condition: Stable Departure-Patient Inst. Referrals: NO,LOCAL PHYSICIAN (PCP/Family) Primary Care Physician BERENICE MITCHELL MD May 11, 2019 01:08
[2019-05-11 01:27] LABS: HEMATOCRIT 43 % (35-52); HEMOGLOBIN 14.8 G/DL (11.5-16.0); MEAN CORPUSCULAR HEMOGLOBIN 31 PG (25-34); MEAN CORPUSCULAR HGB CONC 35 G/DL (32-36); MEAN CORPUSCULAR VOLUME 90 FL (80-99); MEAN PLATELET VOLUME 10.3 FL (7.4-10.4); PLATELET COUNT 312 10^3/uL (130-400); RED CELL DISTRIBUTION WIDTH 12.2 % (10.0-14.5); WHITE BLOOD COUNT 11.1 10^3/uL (4.3-11.0)
[2019-05-11] MEDS ORDERED: RT-ALBUTEROL SULF 2.5 MG/3 ML PRE-MIX VIAL INH ONE ×8 (01:30→02:30)
[2019-05-11] MEDS ORDERED: RT-IPRATROPIUM (ATROVENT) 0.5MG/2.5ML AMP IH ONE ×2 (01:30→02:30)
[2019-05-11] MEDS ORDERED: methylPREDNISolone 125 MG (Solu-MEDROL) VIAL IVP ONE (01:30)
[2019-05-11 01:35] LABS: BASOPHILS % (MANUAL) 0 %; EOSINOPHILS % (MANUAL) 4 %; LYMPHOCYTES % (MANUAL) 41 %; MONOCYTES % (MANUAL) 9 %; NEUTROPHILS % (MANUAL) 46 %; RBC MORPH NORMAL
[2019-05-11 01:39] LABS: POTASSIUM 3.5 MMOL/L (3.6-5.0); SODIUM 143 MMOL/L (135-145)
[2019-05-11 01:43] LABS: ALANINE AMINOTRANSFERASE 35 U/L (0-55); ALBUMIN 4.6 GM/DL (3.2-4.5); ALKALINE PHOSPHATASE 103 U/L (40-136); BILIRUBIN,TOTAL 0.3 MG/DL (0.1-1.0); BUN/CREATININE RATIO 13; CARBON DIOXIDE 25 MMOL/L (21-32); CHLORIDE 104 MMOL/L (98-107); CREATININE SERUM 0.82 MG/DL (0.60-1.30); GFR ESTIMATED > 60; GLUCOSE 113 MG/DL (70-105); TOTAL PROTEIN 7.6 GM/DL (6.4-8.2)
[2019-05-11] MEDS ORDERED: LORazepam INJ 2 MG/ML (ATIVAN) VIAL IVP ONE ×2 (02:00→03:00)
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
[2019-05-11] MEDS ORDERED: NS IV 1000 ML 1,000 ML ONE (04:23)
[2019-05-11 04:48] LABS: BILIRUBIN,URINE NEGATIVE (NEGATIVE); CLARITY,URINE CLEAR; COLOR,URINE YELLOW; GLUCOSE, URINE (UA) NEGATIVE (NEGATIVE); KETONES,URINE NEGATIVE (NEGATIVE); LEUKOCYTE ESTERASE ,URINE NEGATIVE (NEGATIVE); NITRITE,URINE NEGATIVE (NEGATIVE); PH,URINE 5 (5-9); PROTEIN,URINE NEGATIVE (NEGATIVE); UROBILINOGEN,URINE NORMAL (NORMAL)
[2019-05-11 04:57] LABS: AMPHETAMINE SCREEN, URINE NEGATIVE (NEGATIVE); BACTERIA,URINE NEGATIVE /HPF; BENZODIAZEPINES SCREEN URINE NEGATIVE (NEGATIVE); COCAINE SCREEN URINE NEGATIVE (NEGATIVE); METHAMPHETAMINE SCREEN URINE S NEGATIVE (NEGATIVE); SQUAMOUS EPITHELIAL CELL,UR 0-2 /HPF
[2019-05-11 04:58] LABS: BARBITURATE SCREEN URINE NEGATIVE (NEGATIVE); CANNABINOID SCREEN, URINE NEGATIVE (NEGATIVE); METHADONE STAT NEGATIVE (NEGATIVE); OPIATE SCREEN URINE NEGATIVE (NEGATIVE); OXYCODONE STAT NEGATIVE (NEGATIVE); PROPOXYPHENE STAT NEGATIVE (NEGATIVE); TRICYCLIC ANTIDEPRESSANTS SCRE NEGATIVE (NEGATIVE)
[2019-05-11 05:39] LABS: ABG BASE EXCESS -3.8 MMOL/L (-2.5-2.5); ABG OXYGEN SATURATION 98 % (94-100); ABG PCO2 37 MMHG (35-45); ABG PH 7.37 (7.37-7.43); ABG PO2 92 MMHG (79-93); ABG TCO2 22.1 MMOL/L (21.0-31.0)
[2019-05-11 05:47] LABS: ALLENS TEST YES-POS; INSPIRED O2 21%; VENTILATOR NO
[2019-05-11 05:48] LABS: PATIENT TEMP 96.4
[2019-05-11] MEDS: NS IV 1000 ML 1,000 ML IV SCH ×2 (05:51→13:23)
[2019-05-11] MEDS ORDERED: POTASSIUM CL 10MEQ/50ML IVPB 50 ML IV SCH (06:00)
[2019-05-11] MEDS ORDERED: MAGNESIUM 1 GM/100 ML IVPB 100 ML IV SCH (06:00)
[2019-05-11] MEDS ORDERED: RT-ALBUTEROL/IPRATROPIUM 3 ML (DUONEB) VIAL INH SCH (06:00)
[2019-05-11] MEDS ORDERED: KCL 20 MEQ TAB (K-DUR) PO SCH (06:00)
[2019-05-11] MEDS: methylPREDNISolone 125 MG (Solu-MEDROL) VIAL IVP SCH ×2 (06:01→10:17)
[2019-05-11] MEDS: POTASSIUM CL 10MEQ/50ML IVPB 50 ML IV SCH ×2 (06:30→10:12)
[2019-05-11] MEDS: RT-ALBUTEROL/IPRATROPIUM 3 ML (DUONEB) VIAL IH SCH ×2 (06:38→10:52)
--- NOTE | 2019-05-11 08:48 | Pulmonary Consultation ---
History of Present Illness History of Present Illness Date of Consultation 05/11/19 08:43 Time Seen by Provider: 08:43 Date of Admission History of Present Illness 38yo with hx of asthma presented to ED secondary to worsening respiratory distress, and wheezing. Pt was give SVN txs, and solumedrol in ED then admitted to ICU with BiPAP. No prior episodes like this. She uses an INH at home however that was not helping. I am consulted for pulmonary/Critical care management. Allergies and Home Medications Allergies Coded Allergies: No Known Drug Allergies (Unverified , 05/11/19) Past Yrncjfl-Nupmfr-Wsmlhg Hx Patient Social History Alcohol Use: Occasionally Uses Number of Drinks Today: 6 Alcohol Beverage of Choice: Beer Recreational Drug Use: No Smoking Status: Current Everyday Smoker Type Used: Cigarettes 2nd Hand Smoke Exposure: Yes Recent Foreign Travel: No Contact w/Someone Who Travel: No Recent Infectious Disease Expo: No Recent Hopitalizations: No Physical Abuse: No Sexual Abuse: No Mistreated: No Seasonal Allergies Seasonal Allergies: No Past Medical History Surgeries: No Respiratory: Yes Asthma Currently Using CPAP: No Currently Using BIPAP: No Cardiac: No Neurological: No Genitourinary: No Gastrointestinal: No Musculoskeletal: No Endocrine: No HEENT: No Cancer: No Psychosocial: No Integumentary: No Blood Disorders: No Review of Systems Time Seen by Provider: 08:48 Constitutional: Weakness, Malaise; No: Fever, Chills, Sweats, Other Eyes: No: Pain, Vision change, Conjunctivae inflammation, Eyelid inflammation, Other, Redness ENT: No: Ear pain, Ear discharge, Nose pain, Nose discharge, Nose congestion, Mouth pain, Mouth swelling, Throat pain, Throat swelling, Other Respiratory: Cough, Dry, Shortness of breath, SOB with excertion, Wheezing; No: Hemoptysis, Pleuritic Pain Cardiovascular: Palpitations, Paroxysmal Noc. Dyspnea, Lt Headedness; No: Chest Pain, Orthopnea, Edema, Other Gastrointestinal: Nausea; No: Vomiting, Abdominal Pain, Diarrhea, Constipation Genitourinary: No Dysuria, No Frequency, No Incontinence, No Hematuria, No Retention, No Other Neurological: Weakness, Incoordination Sepsis Event Evaluation Height, Weight, BMI Height: 5'9.00" Weight: 213lbs. 2.0oz. 96.213741sk; 31.5 BMI Method:Estimated Exam Exam Vital Signs Date Time Temp Pulse Resp B/P (MAP) Pulse Ox O2 Delivery O2 Flow Rate FiO2 05/11/19 08:00 103 13 106/64 (78) 96 Room Air 05/11/19 07:00 100 19 108/57 (74) 97 NIV Bilevel 21.00 05/11/19 07:00 104 05/11/19 06:38 98 96 21.00 05/11/19 06:38 97.2 05/11/19 06:00 98 18 104/60 (75) 98 NIV Bilevel 21.00 05/11/19 05:43 96 96 21.00 05/11/19 05:30 86 18 107/59 (75) 97 NIV Bilevel 21.00 05/11/19 05:15 92 19 115/67 (83) 96 NIV Bilevel 21.00 05/11/19 05:00 92 20 103/53 (70) 96 NIV Bilevel 21.00 05/11/19 04:48 88 97 21 05/11/19 04:45 87 20 103/56 (72) 97 NIV Bilevel 21.00 05/11/19 04:30 96.6 88 20 106/70 (82) 97 NIV Bilevel 21.00 05/11/19 04:23 96 96 21.00 05/11/19 04:21 92 05/11/19 04:00 97 NIV Bilevel 21 05/11/19 03:21 86 16 102/55 (71) 100 NIV Bilevel 05/11/19 01:16 97.9 90 137/71 (93) 93 Room Air I & O 05/11/19 07:00 Output Total 650 ml Balance -650 ml Height & Weight Height: 5'9.00" Weight: 213lbs. 2.0oz. 96.005511dd; 31.5 BMI Method:Estimated General Appearance: No Apparent Distress, WD/WN, Obese HEENT: PERRL/EOMI, Normal ENT Inspection, Pharynx Normal Neck: Full Range of Motion, Non Tender, Supple Respiratory: Chest Non Tender, Lungs Clear, Normal Breath Sounds, No Accessory Muscle Use, No Respiratory Distress Cardiovascular: No Edema, No Gallop, Tachycardia Capillary Refill: Less Than 3 Seconds Gastrointestinal: normal bowel sounds, non tender, soft Extremity: Normal Capillary Refill, Normal Inspection, No Pedal Edema Neurologic/Psychiatric: Alert, Oriented x3 Skin: Normal Color, Warm/Dry Lymphatic: No Adenopathy Results Lab Laboratory Tests 05/11/19 01:05 Assessment/Plan Assessment/Plan Status asthmaticus -SVNs -Solumedrol -Bipap PRN -Repeat labs with mg and phos Dehydration -IVF Hypokalemia -replace obesity Alcohol use -ETOH 221 OMAR ALONZO DO May 11, 2019 08:48
[2019-05-11 09:13] LABS: BASOPHILS % (AUTO) 0 % (0-10); EOSINOPHILS % (AUTO) 0 % (0-10); HEMATOCRIT 40 % (35-52); HEMOGLOBIN 14.2 G/DL (11.5-16.0); LYMPHOCYTES # (AUTO) 0.7 X 10^3 (1.0-4.0); LYMPHOCYTES % (AUTO) 11 % (12-44); MEAN CORPUSCULAR HEMOGLOBIN 32 PG (25-34); MEAN CORPUSCULAR HGB CONC 35 G/DL (32-36); MEAN CORPUSCULAR VOLUME 90 FL (80-99); MEAN PLATELET VOLUME 10.4 FL (7.4-10.4); MONOCYTES # (AUTO) 0.1 X 10^3 (0.0-1.0); MONOCYTES % (AUTO) 1 % (0-12); NEUTROPHILS # (AUTO) 5.9 X 10^3 (1.8-7.8); NEUTROPHILS % (AUTO) 88 % (42-75); PLATELET COUNT 285 10^3/uL (130-400); RED CELL DISTRIBUTION WIDTH 12.7 % (10.0-14.5); WHITE BLOOD COUNT 6.8 10^3/uL (4.3-11.0)
--- NOTE | 2019-05-11 09:27 | Diagnostic Imaging Report ---
EXAM: CHEST 1 VIEW AP/PA ONLY INDICATION: Shortness of breath. COMPARISON: None. FINDINGS: Normal heart size and pulmonary vascularity. No dense consolidation, pleural effusion or pneumothorax. No acute osseous findings. The right costophrenic angle is not included on the [id number]. IMPRESSION: No acute cardiopulmonary findings. The right costophrenic angle is not included on the [id number]. Dictated by: Dictated on workstation # [id number]
[2019-05-11 09:33] LABS: ALANINE AMINOTRANSFERASE 39 U/L (0-55); ALBUMIN 4.1 GM/DL (3.2-4.5); ALKALINE PHOSPHATASE 91 U/L (40-136); BILIRUBIN,TOTAL 0.3 MG/DL (0.1-1.0); BUN/CREATININE RATIO 13; CARBON DIOXIDE 16 MMOL/L (21-32); CHLORIDE 110 MMOL/L (98-107); CREATININE SERUM 0.75 MG/DL (0.60-1.30); GFR ESTIMATED > 60; GLUCOSE 142 MG/DL (70-105); PHOSPHORUS 2.5 MG/DL (2.3-4.7); SODIUM 140 MMOL/L (135-145); TOTAL PROTEIN 7.1 GM/DL (6.4-8.2)
[2019-05-11 10:00] LABS: EOSINOPHILS % (MANUAL) 2 %; LYMPHOCYTES % (MANUAL) 4 %; MONOCYTES % (MANUAL) 3 %; NEUTROPHILS % (MANUAL) 86 %
[2019-05-11 10:01] LABS: RBC MORPH NORMAL; REACTIVE LYMPHOCYTES 5 %
[2019-05-11] MEDS ORDERED: ALPRAZolam 0.5 MG (XANAX) TAB ONE (10:09)
[2019-05-11] MEDS ORDERED: LORazepam 0.5 MG (ATIVAN) TABLET PO PRN (10:15)
--- NOTE | 2019-05-11 11:39 | Short Stay Summary-Hospitalist ---
History of Present Illness HPI/Chief Complaint patient noted the onset of rather abrupt shortness of breath with wheezing while she was smoking sitting at a convenience store. She normally reports distal under a pack of cigarettes per day with a history of asthma for which she is only been on rescue inhaler therapy that she has been using on a daily basis. She recently moved and had not been on an Advair inhaler in some time that she has used in the past. She denied any associated hives or itching but became progressively more short of breath and was brought to the emergency room in severe respiratory distress. Breathing treatments were initiated with Solu- Medrol in addition to BiPAP with significant improvement. She was transferred to intensive care unit for further monitoring of status asthmaticus. This morning she is feeling significantly better and appeared to be in no acute distress. She denied any associated night sweats chills fever or sputum production and is had no past history of the need for intubation or noninvasive ventilation for asthma attacks. Date Seen 05/11/19 Time Seen by a Provider: 10:00 Attending Physician Juli Humphrey MD PCP No,Local Physician Referring Physician Date of Admission May 11, 2019 at 03:14 Home Medications & Allergies Home Medications Reviewed patient Home Medication Reconciliation performed by pharmacy medication reconciliations lab animal technician and/or nursing. Patients Allergies have been reviewed. Allergies Allergies Coded Allergies No Known Drug Allergies (Unverified05/11/19) Past Xbeafct-Ktyllf-Gcnhrv Hx Past Med/Social Hx: Reviewed and Corrections made Patient Social History Alcohol Use: Occasionally Uses Number of Drinks Today: 6 Alcohol Beverage of Choice: Beer Recreational Drug Use: No Smoking Status: Current Everyday Smoker Type Used: Cigarettes 2nd Hand Smoke Exposure: Yes Physical Abuse Screen: No Sexual Abuse: No Recent Foreign Travel: No Contact w/other who traveled: No Recent Hopitalizations: No Recent Infectious Disease Expo: No Seasonal Allergies Seasonal Allergies: No Past Medical History Currently Using CPAP: No Currently Using BIPAP: No History of Blood Disorders: No Review of Systems Constitutional: see HPI Physical Exam Physical Exam Vital Signs Vital Signs - First Documented 05/11/19 05/11/19 05/11/19 05/11/19 01:16 03:21 04:00 04:23 Temp 97.9 Pulse 90 Resp 16 B/P (MAP) 137/71 (93) Pulse Ox 93 O2 Delivery Room Air O2 Flow Rate 21.00 FiO2 21 Capillary Refill : Less Than 3 Seconds Height, Weight, BMI Height: 5'9.00" Weight: 213lbs. 2.0oz. 96.425795li; 31.5 BMI Method:Estimated General Appearance: No Apparent Distress, WD/WN, Obese HEENT: PERRL/EOMI, Normal ENT Inspection, Pharynx Normal Neck: Full Range of Motion, Non Tender, Supple Respiratory: Chest Non Tender, Lungs Clear, Normal Breath Sounds, No Accessory Muscle Use, No Respiratory Distress Cardiovascular: No Edema, No Gallop, Tachycardia Gastrointestinal: Non Tender Extremity: Normal Capillary Refill, Normal Inspection, No Pedal Edema Neurologic/Psychiatric: Alert, Oriented x3 Skin: Normal Color, Warm/Dry Lymphatic: No Adenopathy Results Results/Procedures Labs Laboratory Tests 05/11/19 01:05 05/11/19 09:10 Patient resulted labs reviewed. Short Stay Diagnosis Discharge Diagnosis-Short Stay Admission Diagnosis A/P 1. Status asthmaticus aggravated by smoking 2. Asthma Final Discharge Diagnosis as per above Conclusion Plan upon my arrival the patient was able to take deep breaths with no wheezing and no significant cough with what appear to be normal air movement. This is compatible with rapid steroid responder. We discussed the fact that if she did not smoke this would not of happened and the life-threatening nature of her asthma attack last night. She voices understanding that future smoking may lead to an asthma attack with significant risk for . She stated that she had been able to quit smoking on her own in the past and felt that she would be able to do it again. After discussion she did not wish any form of smoking cessation aid. She will be discharged later today if she continues to do well on a prednisone taper. She felt that she couldn't afford this although she will has no insurance currently and would not be able to afford Advair inhaler. I mcmillan spect that this long as she remains abstinent from smoking she will not require anti-inflammatory therapy she does have a rescue inhaler. Discussed any recurrent wheezing not quickly alleviated by her rescue inhaler should necessitate emergency room visit urgently and that she needed to seek out a primary care provider in [facility] where she lives currently. Clinical Quality Measures DVT/VTE Risk/Contraindication: Risk Factor Score Per Nursin RFS Level Per Nursing on Admit: 2=Moderate JULI HUMPHREY MD May 11, 2019 11:39
--- NOTE | 2019-05-11 11:45 | NUR ---
This RN called to pt room at this time due to pt's complaint of pain near IV site. Assessment performed at this time by RN. IV site does not appear infiltrated or red at this time. Education provided to pt and family at bedside. IV fluids stopped per pt requests. Will continue to monitor.
[2019-05-11] MEDS ORDERED: PRD20T PO (11:46)
[2019-05-11] MEDS ORDERED: RT-ALBUINH IH (11:46)
--- NOTE | 2019-05-11 12:05 | NUR ---
This RN called to pt's room at this time by family stating pt is in distress. This RN assessed pt at this time. VSS. Pt appears anxious at this time by oxygen saturation remains 95-97% RR26. Multiple family members at bedside at this time. This RN auscultated lung sounds carlos noting some wheezing. RT Maria Eugenia notified of pt's requests. RT informed this RN that pt had just received breathing treatment within the hour. Will continue to monitor.
--- NOTE | 2019-05-11 13:15 | NUR ---
Pt very agitated at this time and requesting to be discharged. Pt states "I used my friends inhaler. Since you wont do anything." Pt's oxygenation 97% at this time. HR 130s, Pt remains very upset with staff at this time. Will continue to monitor. Dr. Mai notified at this time.
--- NOTE | 2019-05-11 13:33 | NUR ---
[facility] notified RN at this time that pt left AMA with family at side. Pt had already left when this RN arrived at [facility]. Unknown as to if pt still had IV in right AC upon leaving. Dr. Mai notified of pts departure also at this time. [employer] also notified.
== END 2019-05-11 13:33 | disposition left against medical advice (07) | DRG 203 ==
LOC: EDUNIT# 00:55 → ER FS 00:58 → CMPBEDREQ 02:30 → ICU 03:14
PROVIDERS: ADMIT Internal Medicine; ATTEND Internal Medicine
DX: J45.902 Unspecified asthma with status asthmaticus (principal); F17.210 Nicotine dependence, cigarettes, uncomplicated; E86.0 Dehydration; E87.6 Hypokalemia; E66.9 Obesity, unspecified; Z68.31 Body mass index [BMI] 31.0-31.9, adult; F10.929 Alcohol use, unspecified with intoxication, unspecified; Y90.7 Blood alcohol level of 200-239 mg/100 ml; F41.9 Anxiety disorder, unspecified
CPT/HCPCS: 36415; 71045; 80053; 80306; 80320; 81000; 82805; 83735; 84100; 85007; 85027; 94640; 94660; 96374; 96375; 96376